=== PATIENT | female | born 1980 | race Hispanic/Latino ===

== ENCOUNTER 2016-10-02 11:00 | Inpatient (IN) | payer OTHER ==
[2016-10-02 11:14] VITALS: BMI 43.8
--- NOTE | 2016-10-02 11:38 | ED PDOC ---
Arrival/HPI - General Historian: Patient - History of Present Illness Time/Duration: > month Symptom Onset: Gradual Symptom Course: Unchanged - General Chief Complaint: Wound Check Time Seen by Provider: 10/02/16 11:21 - History of Present Illness Narrative History of Present Illness (Text): 35 F with pmh of NIDDM presents to the ED following her PMD instruction for R toe osteomyolitis. Pt states that a few months ago she went to a nail salon and she developed an ulcer on her R toe which got progressively worse. Now she states that when she got insurance she was able to get an MRI which showed R phalanx infection compatible with osteomyelitis. She denies any pain, fever or chills. She denies any galdamez, dizziness, sob, cp, abd pain, n/v/d. (Tam Monson) Past Medical History - Provider Review Nursing Documentation Reviewed: Yes - Infectious Disease Hx of Infectious Diseases: MRSA - Tetanus Immunization Tetanus Immunization: Up to Date - Cardiac Hx Cardiac Disorders: No Hx Hypertension: Yes - Pulmonary Hx Respiratory Disorders: No - Neurological Hx Neurological Disorder: No - HEENT Hx HEENT Disorder: Yes (wears eyeglassees) - Renal Hx Renal Disorder: No - Endocrine/Metabolic Hx Diabetes Mellitus Type 1: Yes (non compliant with meds insurance issues) Other/Comment: hasn't taken diabetic meds x 1 yr - Hematological/Oncological Hx Blood Disorders: No - Integumentary Hx Dermatological Disorder: No - Musculoskeletal/Rheumatological Hx Falls: No - Gastrointestinal Hx Gastrointestinal Disorders: No - Genitourinary/Gynecological Hx Genitourinary Disorders: No - Psychiatric Hx Psychophysiologic Disorder: No Hx Depression: No Hx Emotional Abuse: No Hx Physical Abuse: No Hx Substance Use: No - Past Surgical History Past Surgical History: No Previous - Anesthesia Hx Anesthesia: No - Suicidal Assessment Feels Threatened In Home Enviroment: No Family/Social History - Physician Review Nursing Documentation Reviewed: Yes Family/Social History: No Known Family HX Smoking Status: Never Smoked Hx Alcohol Use: No Hx Substance Use: No Hx Substance Use Treatment: No Allergies/Home Meds Allergies/Adverse Reactions: Allergies No Known Allergies Allergy (Verified 10/02/16 11:14) Home Medications: Home Meds Medication Instructions Recorded Confirmed MetFORMIN [glucoPHAGE] 1,000 mg PO BID 06/02/17 06/02/17 Review of Systems - Physician Review All systems were reviewed & negative as marked: Yes - Review of Systems Constitutional: absent: Fatigue, Fevers Respiratory: absent: SOB, Cough Cardiovascular: absent: Chest Pain, Palpitations Gastrointestinal: absent: Abdominal Pain, Nausea, Vomiting Musculoskeletal: absent: Arthralgias Physical Exam Vital Signs Reviewed: Yes Temperature: Afebrile Blood Pressure: Hypertensive Pulse: Regular Respiratory Rate: Normal Appearance: Positive for: Well-Appearing, Non-Toxic, Comfortable Pain Distress: None Mental Status: Positive for: Alert and Oriented X 3 - Systems Exam Head: Present: Atraumatic, Normocephalic Pupils: Present: PERRL Extroacular Muscles: Present: EOMI Conjunctiva: Present: Normal Mouth: Present: Moist Mucous Membranes Neck: Present: Normal Range of Motion Respiratory/Chest: Present: Clear to Auscultation, Good Air Exchange. No: Respiratory Distress, Accessory Muscle Use Cardiovascular: Present: Regular Rate and Rhythm, Normal S1, S2. No: Murmurs Abdomen: Present: Normal Bowel Sounds. No: Tenderness, Distention, Peritoneal Signs Upper Extremity: Present: Normal Inspection. No: Cyanosis, Edema Lower Extremity: Present: NORMAL PULSES, Normal ROM, Erythema, Neurovascularly Intact, Other (R Toe: aprox 0.5cm ulcer on posterior aspect, mild erythema, no edema ). No: Edema, CALF TENDERNESS, Cyanosis, Tenderness, Swelling Neurological: Present: GCS=15, CN II-XII Intact, Speech Normal Skin: Present: Warm, Dry, Normal Color. No: Rashes Psychiatric: Present: Alert, Oriented x 3, Normal Insight, Normal Concentration Medical Decision Making ED Course and Treatment: Impression: 35 F with pmh of NIDDM presents to the ED following her PMD instruction for R toe osteomyolitis. Differential Diagnosis included but are not limited to: Osteomyelitis Plan: - CBC, CMP - Levaquin 500mg IVPB stat - Urine preg test - Clonidine .2mg stat - Reassess and disposition Progress Notes: 10/02/16 11:53 - Pt presents with her medical documents including MRI of R 1st metatarsel/ phalangeal showing compatible with osteomyelitis. She also has culture results showing MRSA, strep agalactae, and Klebsiella pneumoniae all sensitive to Levaquin. 10/02/16 11:59 Pt is also hypertensive 193/102. Clonidine .2 mg ordered stat. 10/02/16 13:[address] Us which will admit the patient to the hospitalist service to med /surg. (Tam Monson) 10/02/16 12:17 Seen and examined with the resident. Our history and physical exam reveals an obese young woman who presents to the emergency department for admission. She had an MRI of her foot approximately 2 weeks ago which showed osteomyelitis in her great toe proximal phalanx. She had wound cultures done by her chain tender which showed MRSA strep and Klebsiella with sensitivities to Levaquin. (Zeferino Holden) - Lab Interpretations Microbiology Results: Microbiology Results 10/02/16 12:00 Blood Blood Culture - Final NO GROWTH AFTER 5 DAYS 10/02/16 12:00 Blood Gram Stain - Final TEST NOT PERFORMED 10/02/16 12:00 Blood Blood Culture - Final NO GROWTH AFTER 5 DAYS 10/02/16 12:00 Blood Gram Stain - Final TEST NOT PERFORMED Lab Results: 10/02/16 12:00 10/02/16 12:00 Lab Results 10/02/16 12:00: Sodium 138, Potassium 4.4, Chloride 102, Carbon Dioxide 27, Anion Gap 13, BUN 23 H, Creatinine 0.7, Est GFR ( Amer) > 60, Est GFR ( Non-Af Amer) > 60, Random Glucose 144 H, Calcium 10.1, Total Bilirubin 0.5, AST 28, ALT 29, Alkaline Phosphatase 68, Total Protein 7.8, Albumin 4.1, Globulin 3.8, Albumin/Globulin Ratio 1.1 10/02/16 12:00: WBC 10.7, RBC 4.70, Hgb 13.4, Hct 40.0, MCV 85.1, MCH 28.5, MCHC 33.5, RDW 12.8, Plt Count 240, MPV 9.8, Gran % 57.8, Lymph % (Auto) 32.6, Johnson % (Auto) 6.3 H, Eos % (Auto) 2.9, Baso % (Auto) 0.4, Gran # 6.19, Lymph # 3.5 H, Johnson # 0.7 H, Eos # 0.3, Baso # 0.04 - Medication Orders Current Medication Orders: Discontinued Medications Alprazolam (Xanax) 0.5 mg PO STAT STA PRN Reason: Protocol Stop: 10/04/16 17:28 Last Admin: 10/04/16 17:36 Dose: 0.5 mg Cadexomer Iodine (Iodosorb) 0 gm TOP DAILY [facility] Last Admin: 10/04/16 09:13 Dose: 10 gm Clonidine HCl (Catapres) 0.2 mg PO STAT STA Stop: 10/02/16 11:44 Last Admin: 10/02/16 12:12 Dose: 0.2 mg Clonidine HCl (Catapres) 0.2 mg PO ONCE ONE Stop: 10/04/16 16:20 Last Admin: 10/04/16 16:31 Dose: 0.2 mg Enalaprilat (Vasotec Iv) 2.5 mg IVP STAT STA Stop: 10/02/16 13:30 Last Admin: 10/02/16 13:47 Dose: 2.5 mg Enoxaparin Sodium (Lovenox) 40 mg SC DAILY [facility] PRN Reason: Protocol Last Admin: 10/04/16 09:11 Dose: 40 mg Hydralazine HCl (Apresoline) 10 mg IVP Q6 PRN PRN Reason: Systolic Blood Pressure Last Admin: 10/03/16 05:24 Dose: 10 mg Hydralazine HCl (Apresoline) 10 mg IVP Q6 PRN PRN Reason: Systolic Blood Pressure Last Admin: 10/04/16 15:08 Dose: 10 mg Levofloxacin/Dextrose (Levaquin 500mg) 500 mg in 100 mls @ 100 mls/hr IVPB STAT STA Stop: 10/02/16 12:40 Last Admin: 10/02/16 12:12 Dose: 100 mls/hr Clindamycin Phosphate 300 mg/ (Sodium Chloride) 52 mls @ 104 mls/hr IVPB Q6H [facility] PRN Reason: Protocol Last Admin: 10/02/16 15:12 Dose: 104 mls/hr Cefepime HCl (Maxipime 1gm) 1 gm in 100 mls @ 100 mls/hr IVPB Q8 [facility] PRN Reason: Protocol Last Admin: 10/04/16 05:35 Dose: 100 mls/hr Vancomycin HCl (Vancomycin 1gm) 1 gm in 250 mls @ 167 mls/hr IVPB Q12H [facility] PRN Reason: Protocol Last Admin: 10/04/16 07:45 Dose: 167 mls/hr Insulin Human Regular (Humulin R Low) [address] [facility] PRN Reason: Protocol Last Admin: 10/04/16 17:35 Dose: Not Given Non-Admin Reason: Blood Sugar Parameter Levofloxacin/Dextrose (Levaquin 750mg) 750 mg IVPB DAILY [facility] Last Admin: 10/02/16 15:23 Dose: Levofloxacin/Dextrose (Levaquin 750mg) 750 mg IVPB DAILY [facility] Last Admin: 10/02/16 19:09 Dose: Lisinopril (Zestril) 20 mg PO DAILY [facility] Last Admin: 10/03/16 10:04 Dose: 20 mg Lisinopril (Zestril) 10 mg PO DAILY [facility] Lisinopril (Zestril) 20 mg PO DAILY [facility] Last Admin: 10/04/16 09:12 Dose: 20 mg Metformin HCl (Glucophage) 1,000 mg PO BID [facility] Last Admin: 10/04/16 17:47 Dose: 1,000 mg Metoprolol Tartrate (Lopressor) 25 mg PO BID [facility] Last Admin: 10/03/16 10:05 Dose: 25 mg Metoprolol Tartrate (Lopressor) 25 mg PO TID [facility] Last Admin: 10/04/16 14:16 Dose: 25 mg Metoprolol Tartrate (Lopressor) 5 mg IVP ONCE ONE Stop: 10/04/16 17:18 Ondansetron HCl (Zofran Inj) 4 mg IVP Q6 PRN PRN Reason: Nausea/Vomiting Pantoprazole Sodium (Protonix Ec Tab) 40 mg PO 0630 [facility] Last Admin: 10/04/16 05:35 Dose: 40 mg Pneumococcal Polyvalent Vaccine (Pneumovax 23 Vaccine) 0.5 ml IM .ONCE ONE Stop: 10/02/16 17:11 Disposition/Present on Arrival - Present on Arrival Any Indicators Present on Arrival: Yes History of DVT/PE: No History of Uncontrolled Diabetes: Yes Urinary Catheter: No History of Decub. Ulcer: Yes (right great toe) History Surgical Site Infection Following: None - Disposition Have Diagnosis and Disposition been Completed?: Yes Disposition Time: 13:25 Patient Plan: Admission - Disposition Diagnosis: Osteomyelitis Disposition: HOSPITALIZED Condition: IMPROVED
[2016-10-02] MEDS ORDERED: levoFLOXacin 500 mg in D5W 500 MG/100 ML BAG IVPB STA (11:41)
[2016-10-02 12:20] LABS: ADD MANUAL DIFF? NO
[2016-10-02 12:26] LABS: BASO # 0.04 K/mm3 (0.0-2.0); BASO % 0.4 % (0.0-3.0); EOS # 0.3 (0.0-0.7); EOS % 2.9 % (1.5-5.0); GRAN # 6.19 (1.4-6.5); GRAN % 57.8 % (50.0-68.0); LYMPH # 3.5 (1.2-3.4); LYMPH % 32.6 % (22.0-35.0); MEAN CELL VOLUME 85.1 fL (80.0-105.0); MEAN CORPUSCULAR HEMOGLOBIN 28.5 pg (25.0-35.0); MEAN CORPUSCULAR HGB CONC 33.5 g/dl (31.0-37.0); MEAN PLATELET VOLUME 9.8 fl (7.0-11.0); MONO # 0.7 (0.1-0.6); MONO % 6.3 % (1.0-6.0); PLATELET COUNT 240 10^3/uL (120.0-450.0); RED CELL DISTRIBUTION WIDTH 12.8 % (11.5-14.5); WHITE BLOOD COUNT 10.7 10^3/ul (4.5-11.0)
[2016-10-02 12:33] LABS: ALB/GLOB RATIO 1.1 (1.1-1.8); ALKALINE PHOSPHATASE 68 U/L (38-133); ALT/SGPT 29 U/L (7-56); AST/SGOT 28 U/L (15-39); BILIRUBIN,TOTAL 0.5 mg/dL (0.2-1.3); BLOOD UREA NITROGEN 23 mg/dL (7-21); CALCIUM 10.1 mg/dL (8.4-10.5); CARBON DIOXIDE 27 mmol/L (21-33); CHLORIDE 102 mmol/L (98-107); GFR AFRICAN-AMERICAN > 60; GLUCOSE,RANDOM 144 mg/dL (70-110); POTASSIUM 4.4 mmol/L (3.6-5.0); SODIUM 138 mmol/L (132-148); TOTAL PROTEIN 7.8 g/dL (5.8-8.3)
[2016-10-02] MEDS ORDERED: EnalaprilAT 1.25 mg/ml Inj IVP STA (13:29)
[2016-10-02] MEDS ORDERED: levoFLOXacin 750 mg in D5W 150 ML BAG IVPB SCH ×2 (14:30→18:30)
--- NOTE | 2016-10-02 14:40 | CP.PCM.HP ---
<Rosa Saunders - Last Filed: 10/02/16 14:55> History of Present Illness - History of Present Illness History of Present Illness: Medicine note for Dr. Abeba SHERWOOD HPI: 35 yo F with PMHx of DM, presents with 2 month history of R foot pain. Said pain is constant without radiation. Two weeks prior (09/22/2016) had MRI done w/ results, "soft tissue edema primarily involving th eplantar aspect of the first phalanx w/ an apparent planar soft tissue wound. These changes are compatible with cellulitis/infection. There are subtle findings compatible w/ infection-osteomyelitis of the proximal and distal phalanx." Admission for for same ulcer two years prior, MRI positive for tenosenovitis and cellulitis. Denies fever, headache, chest pain, cough, n/v/abd pain, urinary changes or abnormality with stool. PMHx: DM, R foot ulcer Sx: denies allergies: NKDA Medications: metformin 1000mg PO BID social: denies etoh, smoking, illicit drugs Present on Admission - Present on Admission Any Indicators Present on Admission: No Review of Systems - Review of Systems All systems: reviewed and no additional remarkable complaints except - Constitutional Constitutional: absent: Chills, Fever - Cardiovascular Cardiovascular: absent: Chest Pain, Dyspnea - Respiratory Respiratory: absent: Cough, Dyspnea - Gastrointestinal Gastrointestinal: absent: Abdominal Pain, Diarrhea - Genitourinary Genitourinary: absent: Hematuria, Pyuria Past Patient History - Infectious Disease Hx of Infectious Diseases: MRSA - Tetanus Immunizations Tetanus Immunization: Up to Date - Past Social History Smoking Status: Never Smoked - CARDIAC Hx Cardiac Disorders: No Hx Hypertension: Yes - PULMONARY Hx Respiratory Disorders: No - NEUROLOGICAL Hx Neurological Disorder: No - HEENT Hx HEENT Problems: Yes (wears eyeglassees) - RENAL Hx Chronic Kidney Disease: No - ENDOCRINE/METABOLIC Hx Diabetes Mellitus Type 1: Yes (non compliant with meds insurance issues) Other/Comment: hasn't taken diabetic meds x 1 yr - HEMATOLOGICAL/ONCOLOGICAL Hx Blood Disorders: No - INTEGUMENTARY Hx Dermatological Problems: No - MUSCULOSKELETAL/RHEUMATOLOGICAL Hx Falls: No - GASTROINTESTINAL Hx Gastrointestinal Disorders: No - GENITOURINARY/GYNECOLOGICAL Hx Genitourinary Disorders: No - PSYCHIATRIC Hx Psychophysiologic Disorder: No Hx Depression: No Hx Emotional Abuse: No Hx Physical Abuse: No Hx Substance Use: No - SURGICAL HISTORY Hx Surgeries: No - ANESTHESIA Hx Anesthesia: No Meds Allergies/Adverse Reactions: Allergies Allergy/AdvReac Type Severity Reaction Status Date / Time No Known Allergies Allergy Verified 10/02/16 11:14 Physical Exam - Constitutional Appears: Non-toxic, No Acute Distress - Head Exam Head Exam: ATRAUMATIC, NORMOCEPHALIC - Eye Exam Eye Exam: EOMI, Normal appearance - Respiratory Exam Respiratory Exam: Clear to Auscultation Bilateral, NORMAL BREATHING PATTERN - Cardiovascular Exam Cardiovascular Exam: +S1, +S2. absent: Bradycardia - GI/Abdominal Exam GI & Abdominal Exam: Soft. absent: Tenderness - Exam External exam: absent: Ecchymosis, Lacerations - Extremities Exam Extremities exam: Positive for: normal capillary refill Additional comments: plantar aspect of R first digit of foot has approximately 3mm in diameter deep ulcer, no d/c or bleeding noted. - Back Exam Back exam: absent: CVA tenderness (L), CVA tenderness (R) - Neurological Exam Neurological exam: Alert, Oriented x3 - Skin Skin Exam: Normal Color, Warm Results - Vital Signs Recent Vital Signs: Last Vital Signs Temp 98.2 F 10/02/16 11:14 Pulse 72 10/02/16 14:10 Resp 16 10/02/16 14:10 BP 170/98 H 10/02/16 14:10 Pulse Ox 96 10/02/16 14:10 - Labs Result Diagrams: 10/02/16 12:00 10/02/16 12:00 Labs: Laboratory Results - last 24 hr 10/02/16 10/02/16 12:00 12:00 WBC 10.7 RBC 4.70 Hgb 13.4 Hct 40.0 MCV 85.1 MCH 28.5 MCHC 33.5 RDW 12.8 Plt Count 240 MPV 9.8 Gran % 57.8 Lymph % (Auto) 32.6 Ware % (Auto) 6.3 H Eos % (Auto) 2.9 Baso % (Auto) 0.4 Gran # 6.19 Lymph # 3.5 H Ware # 0.7 H Eos # 0.3 Baso # 0.04 Sodium 138 Potassium 4.4 Chloride 102 Carbon Dioxide 27 Anion Gap 13 BUN 23 H Creatinine 0.7 Est GFR ( Amer) > 60 Est GFR (Non-Af Amer) > 60 Random Glucose 144 H Calcium 10.1 Total Bilirubin 0.5 AST 28 ALT 29 Alkaline Phosphatase 68 Total Protein 7.8 Albumin 4.1 Globulin 3.8 Albumin/Globulin Ratio 1.1 Assessment & Plan - Assessment and Plan (Free Text) Plan: 35 yo F with PMHx of DM presents with initial blood pressure of 211/102 and chronic diabetic R foot ulcer with recent MRI with possibility of OM: R foot ulcer: R Hallux wound culture from 09/22/2016 positive for MRSA (susceptible to clindamycin), and Strept agalactiae (susceptible to levofloxacin) CLINDAMYCIN 300MG IV q6, levofloxacin 750 mg IV QD Podiatry consult and ID consult appreciated HTN: initial 211/102, treated with clonidine .2 and enalipril vasotec in ED metoprolol 25 mg PO BID hydralazine 10 IV q6 PRN lisinopril 20 mg PO QD DM: accuchecks ACHS, Low ISS, metformin 1000 BID PPx: lovenox 40 SC QD, zofran 4mg q6 prn, protonix 40 po qd Pt seen together and discussed w/ Dr. Us <Abeba SHERWOOD,[facility] - Last Filed: 10/02/16 15:47> Results - Vital Signs Recent Vital Signs: Last Vital Signs Temp 98.2 F 10/02/16 11:14 Pulse 66 10/02/16 15:10 Resp 18 10/02/16 15:10 BP 170/90 H 10/02/16 15:10 Pulse Ox 97 10/02/16 15:10 - Labs Result Diagrams: 10/02/16 12:00 10/02/16 12:00 Attending/Attestation - Attestation I have personally seen and examined this patient.: Yes I have fully participated in the care of the patient.: Yes I have reviewed all pertinent clinical information: Yes Notes (Text): 10/02/16 15:30 Patient was seen and examined with medical office rep .Agreed with resident assessment and plan. 35 yrs old female with PMH of Obesity.NIDDM,HTN, non compliance with medication was sent from PMD office with abnormal MRI that showed osteomylitis of distal big toe, wound cultures growing MRSA sensitive to clindamycin/K.Pneumonia and Streptococus sensitive to Levofloxacin.We will get ID and Podiatry consult.ID to decide about duration of antibiotics. Patient blood pressure was high in ER, no neurological deficit, no evidence of organ dysfunction,blood pressure is high due to non compliance Management plan was discussed in detail with patient Education was provided.
[2016-10-02] MEDS ORDERED: Clindamycin 300 MG in Sodium Chloride 0.9% 50 ML IVPB SCH (14:45)
[2016-10-02] MEDS ORDERED: Pneumococcal 23-Valent Vaccine IM ONE (17:10)
[2016-10-02] MEDS: Insulin Reg-LOW-Coverage SC SCH (19:02)
--- NOTE | 2016-10-02 19:57 | CP.PCM.CON ---
History of Present Illness - History of Present Illness History of Present Illness: Infectious Disease Consultation: October 02, 2016 35 yo female with right foot 1st toe ulceration for the past few months with history of diabetes mellitus. Only recently started on diabetes treatment. Patient is obese with Stage III ulcer in ventral surface of distal first toe on right foot. No drainage seen at this time. MRI done as an outpatient suggests osteomyeltis. Supportive care. No fevers or chills. PMHx: Diabetes Mellitus, Obesity, Right foot ulcer for several months, Hypertension? PSHx: none given Allergies: NKDA Social Hx: no tobacco, EtOH, or illicit drugs Active Medications Enoxaparin Sodium (Lovenox) 40 mg SC DAILY [facility] PRN Reason: Protocol Hydralazine HCl (Apresoline) 10 mg IVP Q6 PRN PRN Reason: Systolic Blood Pressure Clindamycin Phosphate 300 mg/ (Sodium Chloride) 52 mls @ 104 mls/hr IVPB Q6H [facility] PRN Reason: Protocol Last Admin: 10/02/16 15:12 Dose: 104 mls/hr Insulin Human Regular (Humulin R Low) 0 units SC ACHS [facility] PRN Reason: Protocol Last Admin: 10/02/16 19:02 Dose: Not Given Levofloxacin/Dextrose (Levaquin 750mg) 750 mg IVPB DAILY [facility] Last Admin: 10/02/16 19:09 Dose: Not Given Lisinopril (Zestril) 20 mg PO DAILY [facility] Metformin HCl (Glucophage) 1,000 mg PO BID [facility] Last Admin: 10/02/16 18:53 Dose: 1,000 mg Metoprolol Tartrate (Lopressor) 25 mg PO BID [facility] Last Admin: 10/02/16 18:53 Dose: 25 mg Ondansetron HCl (Zofran Inj) 4 mg IVP Q6 PRN PRN Reason: Nausea/Vomiting Pantoprazole Sodium (Protonix Ec Tab) 40 mg PO 0630 [facility] Family Hx: none given ROS: No fevers, chills, nausea, vomiting, diarrhea, headaches, dizziness, chest pain , abdominal pain, melena, hematuria, hematemesis, hematochezia, depression, anxiety, vision loss, hearing loss, loss of consciousness Past Patient History - Infectious Disease Hx of Infectious Diseases: MRSA - Tetanus Immunizations Tetanus Immunization: Up to Date - Past Social History Smoking Status: Never Smoked - CARDIAC Hx Hypercholesterolemia: Yes Hx Hypertension: Yes - PULMONARY Hx Respiratory Disorders: No - NEUROLOGICAL Hx Neurological Disorder: No - HEENT Hx HEENT Problems: Yes (wears eyeglassees) - RENAL Hx Chronic Kidney Disease: No - ENDOCRINE/METABOLIC Hx Diabetes Mellitus Type 1: Yes (non compliant with meds insurance issues) Other/Comment: hasn't taken diabetic meds x 1 yr, got insurance 1 month ago has been taking metformin x 1 month as per pt, pt dx with dm 2/3 yrs ago - HEMATOLOGICAL/ONCOLOGICAL Hx Blood Disorders: No - INTEGUMENTARY Hx Dermatological Problems: Yes Other/Comment: right great toe dry red wound 0.3cm x 0.3cm x 0.1cm deep surrounded by calloused skin, tatoo left foot - MUSCULOSKELETAL/RHEUMATOLOGICAL Hx Falls: No - GASTROINTESTINAL Hx Gastrointestinal Disorders: Yes (obese) - GENITOURINARY/GYNECOLOGICAL Hx Genitourinary Disorders: Yes (irrregular periods) - PSYCHIATRIC Hx Psychophysiologic Disorder: No Hx Depression: No Hx Emotional Abuse: No Hx Physical Abuse: No Hx Substance Use: No - SURGICAL HISTORY Hx Surgeries: No - ANESTHESIA Hx Anesthesia: No Meds Allergies/Adverse Reactions: Allergies Allergy/AdvReac Type Severity Reaction Status Date / Time No Known Allergies Allergy Verified 10/02/16 11:14 - Medications Medications: Current Medications Enoxaparin Sodium (Lovenox) 40 mg SC DAILY [facility] PRN Reason: Protocol Hydralazine HCl (Apresoline) 10 mg IVP Q6 PRN PRN Reason: Systolic Blood Pressure Clindamycin Phosphate 300 mg/ (Sodium Chloride) 52 mls @ 104 mls/hr IVPB Q6H [facility] PRN Reason: Protocol Last Admin: 10/02/16 15:12 Dose: 104 mls/hr Insulin Human Regular (Humulin R Low) 0 units SC ACHS [facility] PRN Reason: Protocol Last Admin: 10/02/16 19:02 Dose: Not Given Levofloxacin/Dextrose (Levaquin 750mg) 750 mg IVPB DAILY [facility] Last Admin: 10/02/16 19:09 Dose: Not Given Lisinopril (Zestril) 20 mg PO DAILY [facility] Metformin HCl (Glucophage) 1,000 mg PO BID [facility] Last Admin: 10/02/16 18:53 Dose: 1,000 mg Metoprolol Tartrate (Lopressor) 25 mg PO BID [facility] Last Admin: 10/02/16 18:53 Dose: 25 mg Ondansetron HCl (Zofran Inj) 4 mg IVP Q6 PRN PRN Reason: Nausea/Vomiting Pantoprazole Sodium (Protonix Ec Tab) 40 mg PO 0630 [facility] Physical Exam - Constitutional Appears: Non-toxic, No Acute Distress - Head Exam Head Exam: ATRAUMATIC, NORMOCEPHALIC - Eye Exam Eye Exam: EOMI, PERRL Pupil Exam: NORMAL ACCOMODATION, PERRL - ENT Exam ENT Exam: Mucous Membranes Moist, Normal External Ear Exam, TM's Normal Bilaterally - Neck Exam Neck exam: Positive for: Full Rom, Normal Inspection - Respiratory Exam Respiratory Exam: Clear to Auscultation Bilateral, NORMAL BREATHING PATTERN. absent: Rales, Rhonchi, Wheezes - Cardiovascular Exam Cardiovascular Exam: REGULAR RHYTHM, RRR, +S1, +S2 - GI/Abdominal Exam GI & Abdominal Exam: Normal Bowel Sounds, Soft. absent: Distended, Tenderness - Extremities Exam Additional comments: Stage III ulcer in the proximal 1st toe on the right foot ventral surface. No discharge at this time. - Neurological Exam Neurological exam: Alert, CN II-XII Intact, Oriented x3 - Psychiatric Exam Psychiatric exam: Normal Affect, Normal Mood - Skin Skin Exam: Intact, Normal Color Results - Vital Signs Recent Vital Signs: Last Vital Signs Temp 98.2 F 10/02/16 16:54 Pulse 62 10/02/16 18:53 Resp 16 10/02/16 16:54 BP 180/110 H 10/02/16 18:53 Pulse Ox 97 10/02/16 15:10 - Labs Result Diagrams: 10/02/16 12:00 10/02/16 12:00 Labs: Laboratory Results - last 24 hr 10/02/16 17:08 POC Glucose (mg/dL) 121 H Assessment & Plan - Assessment and Plan (Free Text) Assessment: 35 yo female with right foot 1st toe cellulitis and ulceration with possible osteomyelitis. The patient was started on Clindamycin and Levaquin but the patient has cultures done as an outpatient with MRSA and Klebsiella. Will switch antibiotics to Vancomycin and Cefepime for treatment at this time. Check Vancomycin levels before the fourth dose. Supportive care. Thank you for allowing me to participate in the care of the patient, we will follow with you.
[2016-10-02] MEDS: Vancomycin 1gm in NS 250ml 1 GM/250 ML BAG IVPB SCH (21:13)
[2016-10-02] MEDS: Cefepime 1gm in NS 100ml 1 GM/100 ML BAG IVPB SCH (23:05)
[2016-10-03] MEDS: Insulin Reg-LOW-Coverage SC SCH ×5 (01:04→22:43)
[2016-10-03] MEDS: Cefepime 1gm in NS 100ml 1 GM/100 ML BAG IVPB SCH ×3 (05:25→22:41)
[2016-10-03] MEDS: Pantoprazole 40 mg EC Tab PO SCH (05:55)
[2016-10-03 07:36] LABS: ADD MANUAL DIFF? NO
[2016-10-03 07:48] LABS: ALB/GLOB RATIO 1.1 (1.1-1.8); ALKALINE PHOSPHATASE 60 U/L (38-133); ALT/SGPT 31 U/L (7-56); AST/SGOT 27 U/L (15-39); BILIRUBIN,TOTAL 0.6 mg/dL (0.2-1.3); BLOOD UREA NITROGEN 20 mg/dL (7-21); CALCIUM 9.9 mg/dL (8.4-10.5); CARBON DIOXIDE 26 mmol/L (21-33); CHLORIDE 102 mmol/L (98-107); GFR AFRICAN-AMERICAN > 60; GLUCOSE,RANDOM 153 mg/dL (70-110); POTASSIUM 4.4 mmol/L (3.6-5.0); SODIUM 136 mmol/L (132-148); TOTAL PROTEIN 7.5 g/dL (5.8-8.3)
[2016-10-03 08:45] LABS: BASO # 0.04 K/mm3 (0.0-2.0); BASO % 0.3 % (0.0-3.0); EOS # 0.4 (0.0-0.7); EOS % 3.2 % (1.5-5.0); GRAN # 7.51 (1.4-6.5); GRAN % 65.4 % (50.0-68.0); HEMATOCRIT 38.9 % (36.0-48.0); LYMPH # 2.9 (1.2-3.4); LYMPH % 25.4 % (22.0-35.0); MEAN CORPUSCULAR HEMOGLOBIN 28.5 pg (25.0-35.0); MEAN CORPUSCULAR HGB CONC 33.9 g/dl (31.0-37.0); MEAN PLATELET VOLUME 9.7 fl (7.0-11.0); MONO # 0.7 (0.1-0.6); MONO % 5.7 % (1.0-6.0); PLATELET COUNT 228 10^3/uL (120.0-450.0); RED CELL DISTRIBUTION WIDTH 12.8 % (11.5-14.5); WHITE BLOOD COUNT 11.5 10^3/ul (4.5-11.0)
[2016-10-03] MEDS: Vancomycin 1gm in NS 250ml 1 GM/250 ML BAG IVPB SCH ×2 (10:01→20:31)
[2016-10-03] MEDS: Enoxaparin 40 mg Syringe SC SCH (10:05)
--- NOTE | 2016-10-03 10:31 | CON ---
DATE: 10/03/2016 HISTORY OF PRESENT ILLNESS: A 35-year-old female seen at bedside for consultation and evaluation of a diabetic foot ulcer on the plantar medial aspect of her right great toe. The patient states that s he had gone to a nail salon a few months ago where she sustained an accidental wound while they debri ded her hyperkeratotic lesion. The wound got progressively worse. She recently was able to obtain i nsurance where she was being seen by a strategic communications manager who ordered an MRI which was suggestive for osteomy elitis. The patient states that she has had some minor pain and denies any fever, chills, nausea, vo miting or shortness of breath. She was just quite concerned because the wound was not healing and th e toe remained swollen for several weeks. The patient's strategic communications manager had taken wound cultures, which s howed MRSA, strep and Klebsiella which was sensitive to Levaquin. But the oral antibiotics failed to resolve her wound. PAST MEDICAL HISTORY: Significant for insulin-dependent diabetes with peripheral neuropathy, obesity , and hypertension. ALLERGIES: The patient has no known drug allergies. PAST SURGICAL HISTORY: The patient denies any surgery in the past. SOCIAL HISTORY: She does not use tobacco products, does not drink alcohol nor use any illicit drugs. VITAL SIGNS: Reveal a temperature of 97.9, pulse rate of 70, blood pressure 179/110, respiratory rat e of 20. LABORATORY DATA: Most recent laboratories reveal a white count of 11.5 down from 10.7 yesterday, hem oglobin of 13.2, hematocrit of 38.9, platelet count of 228. There is no microbiology report. There is no x-ray report. There is no MRI report. OBJECTIVE: Palpable pedal pulses noted bilaterally. Capillary filling time is within normal limits x 10. There is noted to be pedal hair growth. There are no interdigital macerations noted. There i s a full thickness ulceration on the plantar aspect of the right great toe located medially. The ulc eration measures approximately 0.3 ____ x 0.3 ____ yet probes to a depth of approximately 0.7 mm with a severe hyperkeratotic rim. There is no purulence emanating from the wound. The wound does probe to bone. There is no abscess formation. There is only noted serous drainage. The entire right grea t toe presents with edema and erythema. There is no pain upon palpation and range of motion exercise s. There are no signs of ascending cellulitis. ASSESSMENT: Agustin grade III diabetic ulceration to the right great toe with localized cellulitis. Osteomyelitis cannot be ruled out at this time. PLAN: The patient was examined and hyperkeratotic rim was excisionally debrided. A culture was take n and submitted for sensitivities. The patient states she had an MRI approximately 2 weeks ago; briceno hanna, it would be prudent, even though it appears redundant, to take an x-ray and new MRI testing as t he previous MRI was only suggestive for osteomyelitis. The wound was cleansed and flushed with woodrow l sterile saline and a dry sterile dressing was applied. I spoke at length with the patient about th e possibility of right great toe amputation, if there is confirmed osteomyelitis. But the patient is adamant about not having any ablative surgery. I suggested that after the tests, we can determine i f 4 to 6 weeks of antibiotics could be attempted in an effort to eradicate her osteomyelitis. In the meantime, we will await testing results. We will order forefoot offloading shoe for the patient to ambulate in. The patient will be seen and followed daily and we will await culture and sensitivity r esults. Infectious disease consult was read and appreciated. Naveed Valenzuela DPM cc: [id number] TT: 10/03/2016 10:30:42 Confirmation # [id number] Dictation # [id number] pernell
--- NOTE | 2016-10-03 19:33 | CP.PCM.PN ---
Subjective - Date & Time of Evaluation Date of Evaluation: 10/03/16 Time of Evaluation: 17:30 - Subjective Subjective: Infectious Disease Follow Up: October 03, 2016 35 yo female with right foot 1st toe ulceration for the past few months with history of diabetes mellitus. Only recently started on diabetes treatment. Patient is obese with Stage III ulcer in ventral surface of distal first toe on right foot. No drainage seen at this time. MRI done as an outpatient suggests osteomyeltis. Supportive care. No fevers or chills. Repeat MRI pending. Started on IV antibiotics based on cultures done as an outpatient. Objective - Vital Signs/Intake and Output Vital Signs (last 24 hours): Temp Pulse Resp BP Pulse Ox 98.6 F 80 20 150/90 94 L 10/03/16 16:08 10/03/16 17:06 10/03/16 16:08 10/03/16 18:16 10/03/16 16:08 Intake and Output: 10/03/16 10/04/16 18:59 06:59 Intake Total 1420 Balance 1420 - Medications Medications: Current Medications Cadexomer Iodine (Iodosorb) 0 gm TOP DAILY [facility] Enoxaparin Sodium (Lovenox) 40 mg SC DAILY [facility] PRN Reason: Protocol Last Admin: 10/03/16 10:05 Dose: 40 mg Hydralazine HCl (Apresoline) 10 mg IVP Q6 PRN PRN Reason: Systolic Blood Pressure Cefepime HCl (Maxipime 1gm) 1 gm in 100 mls @ 100 mls/hr IVPB Q8 [facility] PRN Reason: Protocol Last Admin: 10/03/16 14:17 Dose: 100 mls/hr Vancomycin HCl (Vancomycin 1gm) 1 gm in 250 mls @ 167 mls/hr IVPB Q12H [facility] PRN Reason: Protocol Last Admin: 10/03/16 10:01 Dose: 167 mls/hr Insulin Human Regular (Humulin R Low) 0 units SC ACHS [facility] PRN Reason: Protocol Last Admin: 10/03/16 16:55 Dose: Not Given Lisinopril (Zestril) 20 mg PO DAILY [facility] Metformin HCl (Glucophage) 1,000 mg PO BID [facility] Last Admin: 10/03/16 17:06 Dose: 1,000 mg Metoprolol Tartrate (Lopressor) 25 mg PO TID [facility] Last Admin: 10/03/16 17:06 Dose: 25 mg Ondansetron HCl (Zofran Inj) 4 mg IVP Q6 PRN PRN Reason: Nausea/Vomiting Pantoprazole Sodium (Protonix Ec Tab) 40 mg PO 629 [facility] Last Admin: 10/03/16 05:55 Dose: 40 mg - Labs Labs: 10/03/16 07:15 10/03/16 07:15 - Constitutional Appears: Non-toxic, No Acute Distress - Head Exam Head Exam: ATRAUMATIC, NORMOCEPHALIC - Eye Exam Eye Exam: EOMI, PERRL Pupil Exam: NORMAL ACCOMODATION, PERRL - ENT Exam ENT Exam: Mucous Membranes Moist, Normal External Ear Exam, TM's Normal Bilaterally - Neck Exam Neck Exam: Full ROM, Normal Inspection - Respiratory Exam Respiratory Exam: Clear to Ausculation Bilateral, NORMAL BREATHING PATTERN. absent: Rales, Rhonchi, Wheezes - Cardiovascular Exam Cardiovascular Exam: REGULAR RHYTHM, RRR, +S1, +S2 - GI/Abdominal Exam GI & Abdominal Exam: Soft, Normal Bowel Sounds. absent: Distended, Tenderness - Extremities Exam Extremities Exam: Full ROM Additional comments: Stage III ulcer in the proximal 1st toe on the right foot ventral surface. No discharge at this time. - Neurological Exam Neurological Exam: Alert, Awake, CN II-XII Intact, Oriented x3 - Psychiatric Exam Psychiatric exam: Normal Affect, Normal Mood - Skin Skin Exam: Intact, Normal Color Assessment and Plan - Assessment and Plan (Free Text) Assessment: 35 yo female with right foot 1st toe cellulitis and ulceration with possible osteomyelitis. The patient was started on Clindamycin and Levaquin but the patient has cultures done as an outpatient with MRSA and Klebsiella. Continuing on Vancomycin and Cefepime for treatment at this time. Check Vancomycin levels before the fourth dose. Supportive care. Awaiting MRI results here... if osteomyelitis seen, the patient may need 6 weeks of IV antibiotics. If no osteomyelitis, the patient can received a minimum of two weeks of antibiotics and may be able to take oral antibiotics. ESR was 26. Check C-Reactive protein. Thank you for allowing me to participate in the care of the patient, we will follow with you.
--- NOTE | 2016-10-03 23:57 | CP.PCM.PN ---
<Rosa Saunders - Last Filed: 10/04/16 05:58> Subjective - Date & Time of Evaluation Date of Evaluation: 10/03/16 Time of Evaluation: 08:50 - Subjective Subjective: Pt seen and evaluated at bedside. Denies chest pain, abdominal pain, N/V. Afebrile overnight. Objective - Vital Signs/Intake and Output Vital Signs (last 24 hours): Temp Pulse Resp BP Pulse Ox 98.6 F 80 20 150/90 94 L 10/03/16 16:08 10/03/16 17:06 10/03/16 16:08 10/03/16 18:16 10/03/16 16:08 Intake and Output: 10/03/16 10/04/16 18:59 06:59 Intake Total 1420 620 Balance 1420 620 - Medications Medications: Current Medications Cadexomer Iodine (Iodosorb) 0 gm TOP DAILY [facility] Enoxaparin Sodium (Lovenox) 40 mg SC DAILY [facility] PRN Reason: Protocol Last Admin: 10/03/16 10:05 Dose: 40 mg Hydralazine HCl (Apresoline) 10 mg IVP Q6 PRN PRN Reason: Systolic Blood Pressure Cefepime HCl (Maxipime 1gm) 1 gm in 100 mls @ 100 mls/hr IVPB Q8 [facility] PRN Reason: Protocol Last Admin: 10/03/16 22:41 Dose: 100 mls/hr Vancomycin HCl (Vancomycin 1gm) 1 gm in 250 mls @ 167 mls/hr IVPB Q12H [facility] PRN Reason: Protocol Last Admin: 10/03/16 20:31 Dose: 167 mls/hr Insulin Human Regular (Humulin R Low) 0 units SC ACHS [facility] PRN Reason: Protocol Last Admin: 10/03/16 22:43 Dose: Not Given Lisinopril (Zestril) 20 mg PO DAILY [facility] Metformin HCl (Glucophage) 1,000 mg PO BID [facility] Last Admin: 10/03/16 17:06 Dose: 1,000 mg Metoprolol Tartrate (Lopressor) 25 mg PO TID [facility] Last Admin: 10/03/16 17:06 Dose: 25 mg Ondansetron HCl (Zofran Inj) 4 mg IVP Q6 PRN PRN Reason: Nausea/Vomiting Pantoprazole Sodium (Protonix Ec Tab) 40 mg PO 0630 [facility] Last Admin: 10/03/16 05:55 Dose: 40 mg - Labs Labs: 10/03/16 07:15 10/03/16 07:15 - Additional Findings Additional findings: - Constitutional Appears: Non-toxic, No Acute Distress - Head Exam Head Exam: ATRAUMATIC, NORMOCEPHALIC - Eye Exam Eye Exam: EOMI, Normal appearance - Respiratory Exam Respiratory Exam: Clear to Auscultation Bilateral, NORMAL BREATHING PATTERN - Cardiovascular Exam Cardiovascular Exam: +S1, +S2. absent: Bradycardia - GI/Abdominal Exam GI & Abdominal Exam: Soft, Non-Tender - Exam External exam: absent: Ecchymosis, Lacerations - Extremities Exam Extremities exam: Positive for: normal capillary refill Additional comments: plantar aspect of R first digit of foot has approximately 3mm in diameter ulcer , no d/c or bleeding noted. - Back Exam Back exam: absent: CVA tenderness (L), CVA tenderness (R) - Neurological Exam Neurological exam: Alert, Oriented x3 - Skin Skin Exam: Normal Color, Warm Assessment and Plan - Assessment and Plan (Free Text) Plan: 35 yo F with PMHx of DM presents with initial blood pressure of 211/102 and chronic diabetic R foot ulcer with recent MRI with possibility of OM: R foot ulcer: R Hallux wound culture from 09/22/2016 positive for MRSA and Strept agalactiae Initially on and d/c: CLINDAMYCIN 300MG IV q6, levofloxacin 750 mg IV QD currently on cefepime and vanc IV, vanc trough his am Bcx negative at 24 hours, wound cx pending and MRI and XR pending Podiatry consult and ID consult appreciated HTN: initial 211/102, treated with clonidine .2 and enalipril vasotec in ED metoprolol 25 mg PO TID hydralazine 10 IV q6 PRN lisinopril 20 mg PO QD DM: accuchecks ACHS, Low ISS, metformin 1000 BID PPx: lovenox 40 SC QD, zofran 4mg q6 prn, protonix 40 po qd Pt seen together and discussed w/Dr. Jenna Brown <Lefty Brown - Last Filed: 10/04/16 08:56> Objective - Vital Signs/Intake and Output Vital Signs (last 24 hours): Temp Pulse Resp BP Pulse Ox 98.9 F 72 16 162/85 H 98 10/04/16 08:13 10/04/16 08:13 10/04/16 08:13 10/04/16 08:13 10/04/16 08:13 Intake and Output: 10/04/16 10/04/16 06:59 18:59 Intake Total 860 Balance 860 - Medications Medications: Current Medications Cadexomer Iodine (Iodosorb) 0 gm TOP DAILY [facility] Enoxaparin Sodium (Lovenox) 40 mg SC DAILY [facility] PRN Reason: Protocol Last Admin: 10/03/16 10:05 Dose: 40 mg Hydralazine HCl (Apresoline) 10 mg IVP Q6 PRN PRN Reason: Systolic Blood Pressure Cefepime HCl (Maxipime 1gm) 1 gm in 100 mls @ 100 mls/hr IVPB Q8 [facility] PRN Reason: Protocol Last Admin: 10/04/16 05:35 Dose: 100 mls/hr Vancomycin HCl (Vancomycin 1gm) 1 gm in 250 mls @ 167 mls/hr IVPB Q12H [facility] PRN Reason: Protocol Last Admin: 10/04/16 07:45 Dose: 167 mls/hr Insulin Human Regular (Humulin R Low) 0 units SC ACHS [facility] PRN Reason: Protocol Last Admin: 10/04/16 08:46 Dose: Not Given Lisinopril (Zestril) 20 mg PO DAILY [facility] Metformin HCl (Glucophage) 1,000 mg PO BID [facility] Last Admin: 10/03/16 17:06 Dose: 1,000 mg Metoprolol Tartrate (Lopressor) 25 mg PO TID [facility] Last Admin: 10/03/16 17:06 Dose: 25 mg Ondansetron HCl (Zofran Inj) 4 mg IVP Q6 PRN PRN Reason: Nausea/Vomiting Pantoprazole Sodium (Protonix Ec Tab) 40 mg PO 0630 [facility] Last Admin: 10/04/16 05:35 Dose: 40 mg - Labs Labs: 10/04/16 07:58 10/04/16 07:58 Attending/Attestation - Attestation I have personally seen and examined this patient.: Yes I have fully participated in the care of the patient.: Yes I have reviewed all pertinent clinical information, including history, physical exam and plan: Yes Notes (Text): 10/04/16 08:55 Pateint seen and examined at the bedside.Labs, vitals reviewed. Cased d/w ID and MRI ordered. Continue antibiotics, agree with the plan outlined above including titration of her BP meds.
[2016-10-04] MEDS: Pantoprazole 40 mg EC Tab PO SCH (05:35)
[2016-10-04] MEDS: Cefepime 1gm in NS 100ml 1 GM/100 ML BAG IVPB SCH (05:35)
[2016-10-04] MEDS: Vancomycin 1gm in NS 250ml 1 GM/250 ML BAG IVPB SCH (07:45)
[2016-10-04 08:00] LABS: ADD MANUAL DIFF? NO
[2016-10-04 08:14] VITALS: RESP 16
[2016-10-04 08:14] LABS: BASO # 0.05 K/mm3 (0.0-2.0); BASO % 0.4 % (0.0-3.0); EOS # 0.4 (0.0-0.7); EOS % 3.6 % (1.5-5.0); GRAN # 6.92 (1.4-6.5); GRAN % 61.4 % (50.0-68.0); HEMATOCRIT 40.3 % (36.0-48.0); LYMPH # 3.2 (1.2-3.4); LYMPH % 28.5 % (22.0-35.0); MEAN CELL VOLUME 84.3 fL (80.0-105.0); MEAN CORPUSCULAR HEMOGLOBIN 28.9 pg (25.0-35.0); MEAN CORPUSCULAR HGB CONC 34.2 g/dl (31.0-37.0); MEAN PLATELET VOLUME 9.7 fl (7.0-11.0); MONO # 0.7 (0.1-0.6); MONO % 6.1 % (1.0-6.0); PLATELET COUNT 236 10^3/uL (120.0-450.0); RED CELL DISTRIBUTION WIDTH 12.9 % (11.5-14.5); WHITE BLOOD COUNT 11.3 10^3/ul (4.5-11.0)
--- NOTE | 2016-10-04 08:18 | RAD ---
HISTORY: diabetic right great toe ulcer COMPARISON: No prior FINDINGS: BONES: Normal. No fracture. JOINTS: Normal. No osteoarthritis. SOFT TISSUE: Normal. OTHER FINDINGS: None . IMPRESSION: Normal Bone Xray.
[2016-10-04 08:35] LABS: ALB/GLOB RATIO 1.1 (1.1-1.8); ALKALINE PHOSPHATASE 62 U/L (38-133); ALT/SGPT 28 U/L (7-56); AST/SGOT 30 U/L (15-39); BILIRUBIN,TOTAL 0.6 mg/dL (0.2-1.3); BLOOD UREA NITROGEN 17 mg/dL (7-21); CALCIUM 9.8 mg/dL (8.4-10.5); CARBON DIOXIDE 26 mmol/L (21-33); CHLORIDE 102 mmol/L (98-107); GFR AFRICAN-AMERICAN > 60; GLUCOSE,RANDOM 157 mg/dL (70-110); POTASSIUM 4.4 mmol/L (3.6-5.0); SODIUM 137 mmol/L (132-148); TOTAL PROTEIN 7.7 g/dL (5.8-8.3)
[2016-10-04] MEDS: Insulin Reg-LOW-Coverage SC SCH ×3 (08:46→17:35)
--- NOTE | 2016-10-04 08:54 | MRI ---
PROCEDURE: MRI Right Foot HISTORY: Pain. COMPARISON: None available. TECHNIQUE: Multiecho multiplanar sequences were performed through the right foot without the use of intravenous contrast. FINDINGS: BONES: No fracture. Normal marrow signal. MUSCLES: Normal. SOFT TISSUES: Mild 1st digital circumferential soft tissue swelling with minimal tenosynovitis of the flexor hallucis longus tendon. LISFRANC LIGAMENT: Normal. PLANTAR PLATE: Normal. EXTENSOR TENDONS: Normal. FLEXOR TENDONS: Normal. OTHER FINDINGS: First toe soft tissue ulcer. IMPRESSION: Mild 1st toe cellulitis. Small soft tissue ulcer. No evidence of osteomyelitis.
[2016-10-04] MEDS: Enoxaparin 40 mg Syringe SC SCH (09:11)
[2016-10-04] MEDS ORDERED: CADEXOMER IODINE 0.9% GEL 10G TOP SCH (10:00)
--- NOTE | 2016-10-04 13:26 | CP.PCM.DIS ---
<Rosa Saunders - Last Filed: 10/04/16 13:47> Provider - Provider Date of Admission: 10/02/16 13:28 Attending physician: Joyce Del Valle MD Primary care physician: Kentrell Perez MD Consults: DRs. Lam Olmedo and Sofi Time Spent in preparation of Discharge (in minutes): 35 Hospital Course - Lab Results Lab Results: Micro Results 10/03/16 09:43 Toe Gram Stain - Final 10/03/16 09:43 Toe Wound Culture - Preliminary Gram Positive Cocci Most Recent Lab Values WBC 11.3 10^3/ul (4.5-11.0) H 10/04/16 07:58 RBC 4.78 10^6/uL (3.5-6.1) 10/04/16 07:58 Hgb 13.8 gm/dL (12.0-16.0) 10/04/16 07:58 Hct 40.3 % (36.0-48.0) 10/04/16 07:58 MCV 84.3 fL (80.0-105.0) 10/04/16 07:58 MCH 28.9 pg (25.0-35.0) 10/04/16 07:58 MCHC 34.2 g/dl (31.0-37.0) 10/04/16 07:58 RDW 12.9 % (11.5-14.5) 10/04/16 07:58 Plt Count 236 10^3/uL (120.0-450.0) 10/04/16 07:58 MPV 9.7 fl (7.0-11.0) 10/04/16 07:58 Gran % 61.4 % (50.0-68.0) 10/04/16 07:58 Lymph % (Auto) 28.5 % (22.0-35.0) 10/04/16 07:58 Pickens % (Auto) 6.1 % (1.0-6.0) H 10/04/16 07:58 Eos % (Auto) 3.6 % (1.5-5.0) 10/04/16 07:58 Baso % (Auto) 0.4 % (0.0-3.0) 10/04/16 07:58 Gran # 6.92 (1.4-6.5) H 10/04/16 07:58 Lymph # 3.2 (1.2-3.4) 10/04/16 07:58 Pickens # 0.7 (0.1-0.6) H 10/04/16 07:58 Eos # 0.4 (0.0-0.7) 10/04/16 07:58 Baso # 0.05 K/mm3 (0.0-2.0) 10/04/16 07:58 ESR 26 mm/hr (0.0-20.0) H 10/03/16 07:15 Sodium 137 mmol/L (132-148) 10/04/16 07:58 Potassium 4.4 mmol/L (3.6-5.0) 10/04/16 07:58 Chloride 102 mmol/L (98-107) 10/04/16 07:58 Carbon Dioxide 26 mmol/L (21-33) 10/04/16 07:58 Anion Gap 13 (10-20) 10/04/16 07:58 BUN 17 mg/dL (7-21) 10/04/16 07:58 Creatinine 0.7 mg/dL (0.5-1.4) 10/04/16 07:58 Est GFR ( Amer) > 60 10/04/16 07:58 Est GFR (Non-Af Amer) > 60 10/04/16 07:58 POC Glucose (mg/dL) 126 mg/dL (65-110) H 10/04/16 12:02 Random Glucose 157 mg/dL (70-110) H 10/04/16 07:58 Calcium 9.8 mg/dL (8.4-10.5) 10/04/16 07:58 Total Bilirubin 0.6 mg/dL (0.2-1.3) 10/04/16 07:58 AST 30 U/L (15-39) 10/04/16 07:58 ALT 28 U/L (7-56) 10/04/16 07:58 Alkaline Phosphatase 62 U/L (38-133) 10/04/16 07:58 C-React Prot High Sens 10.63 mg/L (1.00-3.00) H 10/04/16 07:58 Total Protein 7.7 g/dL (5.8-8.3) 10/04/16 07:58 Albumin 4.1 g/dL (3.0-4.8) 10/04/16 07:58 Globulin 3.6 gm/dL 10/04/16 07:58 Albumin/Globulin Ratio 1.1 (1.1-1.8) 10/04/16 07:58 Vancomycin Trough 8.3 ug/mL (5.0-10.0) 10/04/16 08:40 - Hospital Course Hospital Course: 35 yo F with PMHx of DM, presents with chronic diabetic R foot ulcer with recent MRI with possibility of OM, w/ 2 month hx of foot pain. Outpt would cxs showed MRSA, and Strept agalactiae. Pt transferred to med/surg for r/o osteomyelitis and ulcer of the foot. On floor, high blood presure is treated with metoprolol mayra , lisinopril mayra and hydralzine prn with blood pressures improving throughout admission. Blood sugars were controlled with home medications and sliding scale insulin. Podiatry and ID consults appreciated and consulted, and R hallux infection initially treated with clindymycin and levofloxacin then changed to IV vancomycin and cefepime. Pt remained afebrile throughout admission. Bedside debridement done by podiatry. MRI done inpt was negative for OM and pt discharged in improved condition with the following medications and instructions : You are discharged home. Please follow up with the wound care clinic w/ Dr. Valenzuela in the same hospital within four days. Please follow up with your primary physician within a week for follow-up with blood pressure Please resume your home medications and take two antibiotics for two weeks: Keflex 500 mg three times daily by mouth and Zyvox 600mg twice daily by mouth. Two new blood pressure medications started: metoprolol tartrate 25mg by mouth three times daily and lisinopril 20 mg by mouth daily. Please return to the emergency department for worsening of symptoms. Discharge Plan - Discharge Medications Prescriptions: Cephalexin [Keflex] 500 mg PO TID #42 capsule Linezolid [Zyvox] 600 mg PO BID #28 tab Lisinopril [Zestril] 20 mg PO DAILY #14 tablet Metoprolol Tartrate 25 mg PO TID #42 tablet - Follow Up Plan Condition: IMPROVED Disposition: HOME/ ROUTINE Instructions: MRSA (Methicillin Resistant Staphylococcus Aureus) (DC), Wound Infection (DC), Heart Healthy Diet (GEN), Diabetes Mellitus Type 2 in Adults (DC ), Basic Carbohydrate Counting (DC), Chronic Hypertension (DC) Additional Instructions: You are discharged home. Please follow up with the wound care clinic w/ Dr. Valenzuela in the same hospital within four days. Please follow up with your primary physician within a week for follow-up with blood pressure. Clean right toe wound with NSS, apply Isobord to wound, and dry sterile dressing once daily. Please resume your home medications and take two antibiotics for two weeks: Keflex 500 mg three times daily by mouth and Zyvox 600mg twice daily by mouth. Two new blood pressure medications started: metoprolol tartrate 25mg by mouth three times daily and lisinopril 20 mg by mouth daily. Please return to the emergency department for worsening of symptoms. Referrals: [facility] [place] [Outside] Kentrell Perez MD [Primary Care Provider] - Follow up with primary <Lefty Brown - Last Filed: 10/04/16 14:38> Provider - Provider Date of Admission: 10/02/16 13:28 Attending physician: Joyce Del Valle MD Primary care physician: Kentrell Perez MD Hospital Course - Lab Results Lab Results: Micro Results 10/03/16 09:43 Toe Gram Stain - Final 10/03/16 09:43 Toe Wound Culture - Preliminary Gram Positive Cocci Most Recent Lab Values WBC 11.3 10^3/ul (4.5-11.0) H 10/04/16 07:58 RBC 4.78 10^6/uL (3.5-6.1) 10/04/16 07:58 Hgb 13.8 gm/dL (12.0-16.0) 10/04/16 07:58 Hct 40.3 % (36.0-48.0) 10/04/16 07:58 MCV 84.3 fL (80.0-105.0) 10/04/16 07:58 MCH 28.9 pg (25.0-35.0) 10/04/16 07:58 MCHC 34.2 g/dl (31.0-37.0) 10/04/16 07:58 RDW 12.9 % (11.5-14.5) 10/04/16 07:58 Plt Count 236 10^3/uL (120.0-450.0) 10/04/16 07:58 MPV 9.7 fl (7.0-11.0) 10/04/16 07:58 Gran % 61.4 % (50.0-68.0) 10/04/16 07:58 Lymph % (Auto) 28.5 % (22.0-35.0) 10/04/16 07:58 Pickens % (Auto) 6.1 % (1.0-6.0) H 10/04/16 07:58 Eos % (Auto) 3.6 % (1.5-5.0) 10/04/16 07:58 Baso % (Auto) 0.4 % (0.0-3.0) 10/04/16 07:58 Gran # 6.92 (1.4-6.5) H 10/04/16 07:58 Lymph # 3.2 (1.2-3.4) 10/04/16 07:58 Pickens # 0.7 (0.1-0.6) H 10/04/16 07:58 Eos # 0.4 (0.0-0.7) 10/04/16 07:58 Baso # 0.05 K/mm3 (0.0-2.0) 10/04/16 07:58 ESR 26 mm/hr (0.0-20.0) H 10/03/16 07:15 Sodium 137 mmol/L (132-148) 10/04/16 07:58 Potassium 4.4 mmol/L (3.6-5.0) 10/04/16 07:58 Chloride 102 mmol/L (98-107) 10/04/16 07:58 Carbon Dioxide 26 mmol/L (21-33) 10/04/16 07:58 Anion Gap 13 (10-20) 10/04/16 07:58 BUN 17 mg/dL (7-21) 10/04/16 07:58 Creatinine 0.7 mg/dL (0.5-1.4) 10/04/16 07:58 Est GFR ( Amer) > 60 10/04/16 07:58 Est GFR (Non-Af Amer) > 60 10/04/16 07:58 POC Glucose (mg/dL) 126 mg/dL (65-110) H 10/04/16 12:02 Random Glucose 157 mg/dL (70-110) H 10/04/16 07:58 Calcium 9.8 mg/dL (8.4-10.5) 10/04/16 07:58 Total Bilirubin 0.6 mg/dL (0.2-1.3) 10/04/16 07:58 AST 30 U/L (15-39) 10/04/16 07:58 ALT 28 U/L (7-56) 10/04/16 07:58 Alkaline Phosphatase 62 U/L (38-133) 10/04/16 07:58 C-React Prot High Sens 10.63 mg/L (1.00-3.00) H 10/04/16 07:58 Total Protein 7.7 g/dL (5.8-8.3) 10/04/16 07:58 Albumin 4.1 g/dL (3.0-4.8) 10/04/16 07:58 Globulin 3.6 gm/dL 10/04/16 07:58 Albumin/Globulin Ratio 1.1 (1.1-1.8) 10/04/16 07:58 Vancomycin Trough 8.3 ug/mL (5.0-10.0) 10/04/16 08:40 Attending/Attestation - Attestation I have personally seen and examined this patient.: Yes I have fully participated in the care of the patient.: Yes I have reviewed all pertinent clinical information, including history, physical exam and plan: Yes Notes (Text): 10/04/16 14:37 Patient seen and examined at bedside with the resident. Labs, vitals, MRI report reviewed. right tow wound dry and non-draining with improvement of swelling. Afebrile and no new symptoms provided. Discharge plan Discussed with podiatry and ID and is as outlined by the resident above. Low salt diet and follow up with PMD advised to check her BP regularly and at home.
--- NOTE | 2016-10-04 14:17 | CP.PCM.PN ---
Subjective - Date & Time of Evaluation Date of Evaluation: 10/04/16 Time of Evaluation: 14:13 - Subjective Subjective: Infectious Disease Follow Up: October 03, 2016 35 yo female with right foot 1st toe ulceration for the past few months with history of diabetes mellitus. Only recently started on diabetes treatment. Patient is obese with Stage III ulcer in ventral surface of distal first toe on right foot. No drainage seen at this time. MRI done as an outpatient suggests osteomyeltis. Supportive care. No fevers or chills. Repeat MRI not showing evidence of osteomyelitis. Continuing on IV antibiotics based on cultures done as an outpatient. Objective - Vital Signs/Intake and Output Vital Signs (last 24 hours): Temp Pulse Resp BP Pulse Ox 98.9 F 85 16 165/85 H 98 10/04/16 08:13 10/04/16 09:12 10/04/16 08:13 10/04/16 09:12 10/04/16 08:13 Intake and Output: 10/04/16 10/04/16 06:59 18:59 Intake Total 860 Balance 860 - Medications Medications: Current Medications Cadexomer Iodine (Iodosorb) 0 gm TOP DAILY [facility] Last Admin: 10/04/16 09:13 Dose: 10 gm Enoxaparin Sodium (Lovenox) 40 mg SC DAILY KASH PRN Reason: Protocol Last Admin: 10/04/16 09:11 Dose: 40 mg Hydralazine HCl (Apresoline) 10 mg IVP Q6 PRN PRN Reason: Systolic Blood Pressure Cefepime HCl (Maxipime 1gm) 1 gm in 100 mls @ 100 mls/hr IVPB Q8 KASH PRN Reason: Protocol Last Admin: 10/04/16 05:35 Dose: 100 mls/hr Vancomycin HCl (Vancomycin 1gm) 1 gm in 250 mls @ 167 mls/hr IVPB Q12H KASH PRN Reason: Protocol Last Admin: 10/04/16 07:45 Dose: 167 mls/hr Insulin Human Regular (Humulin R Low) 0 units SC ACHS KASH PRN Reason: Protocol Last Admin: 10/04/16 12:59 Dose: Not Given Lisinopril (Zestril) 20 mg PO DAILY [facility] Last Admin: 10/04/16 09:12 Dose: 20 mg Metformin HCl (Glucophage) 1,000 mg PO BID [facility] Last Admin: 10/04/16 09:12 Dose: 1,000 mg Metoprolol Tartrate (Lopressor) 25 mg PO TID [facility] Last Admin: 10/04/16 09:12 Dose: 25 mg Ondansetron HCl (Zofran Inj) 4 mg IVP Q6 PRN PRN Reason: Nausea/Vomiting Pantoprazole Sodium (Protonix Ec Tab) 40 mg PO 0630 [facility] Last Admin: 10/04/16 05:35 Dose: 40 mg - Labs Labs: 10/04/16 07:58 10/04/16 07:58 - Constitutional Appears: Non-toxic, No Acute Distress, Chronically Ill - Eye Exam Eye Exam: EOMI, PERRL Pupil Exam: NORMAL ACCOMODATION, PERRL - ENT Exam ENT Exam: Mucous Membranes Moist, Normal External Ear Exam, TM's Normal Bilaterally - Neck Exam Neck Exam: Full ROM, Normal Inspection - Respiratory Exam Respiratory Exam: Clear to Ausculation Bilateral, NORMAL BREATHING PATTERN. absent: Rales, Rhonchi, Wheezes - Cardiovascular Exam Cardiovascular Exam: REGULAR RHYTHM, RRR, +S1, +S2 - GI/Abdominal Exam GI & Abdominal Exam: Soft, Normal Bowel Sounds. absent: Distended, Tenderness - Extremities Exam Extremities Exam: Full ROM Additional comments: Stage III ulcer in the proximal 1st toe on the right foot ventral surface. No discharge at this time. - Neurological Exam Neurological Exam: Alert, Awake, CN II-XII Intact, Oriented x3 - Psychiatric Exam Psychiatric exam: Normal Affect, Normal Mood - Skin Skin Exam: Normal Color Assessment and Plan - Assessment and Plan (Free Text) Assessment: 35 yo female with right foot 1st toe cellulitis and ulceration with possible osteomyelitis. The patient was started on Clindamycin and Levaquin but the patient has cultures done as an outpatient with MRSA and Klebsiella. Continuing on Vancomycin and Cefepime for treatment at this time. Check Vancomycin levels before the fourth dose. Supportive care. Awaiting MRI results here... if osteomyelitis seen, the patient may need 6 weeks of IV antibiotics. If no osteomyelitis, the patient can received a minimum of two weeks of antibiotics and may be able to take oral antibiotics. ESR was 26. C-Reactive protein of 10.63. MRI done here did not show evidence of osteomyelitis. The patient can be given 14 day course of Zyvox 600mg BID and Keflex 500mg TID PO to treat for cellulitis. Thank you for allowing me to participate in the care of the patient, we will follow with you.
[2016-10-04 17:10] VITALS: PULSE 70; TEMP 98.3; O2SAT 99
[2016-10-04] MEDS ORDERED: Metoprolol 1 mg/ml Inj IVP ONE (17:17)
[2016-10-04 18:54] VITALS: BP 150/101
== END 2016-10-04 19:02 | disposition left against medical advice (07) | DRG 287 ==
LOC: ED 11:00 → ERH 13:28 → 5RSO 15:59
PROVIDERS: ADMIT Hospitalist; ATTEND Hospitalist
PROC: 0HBMXZZ Excision of Right Foot Skin, External Approach (ICD-10-PCS; principal; 2016-10-03)
DX: E11.621 Type 2 diabetes mellitus with foot ulcer (principal); L03.031 Cellulitis of right toe; B95.62 Methicillin resistant Staphylococcus aureus infection as the cause of diseases classified elsewhere; I10 Essential (primary) hypertension; E11.42 Type 2 diabetes mellitus with diabetic polyneuropathy; L85.9 Epidermal thickening, unspecified; E66.9 Obesity, unspecified; E78.00 Pure hypercholesterolemia, unspecified; Z79.84 Long term (current) use of oral hypoglycemic drugs; Z91.14 Patient's other noncompliance with medication regimen; Z68.41 Body mass index [BMI] 40.0-44.9, adult